=== PATIENT | female | born 1995 | race Caucasian/White ===

== ENCOUNTER 2017-07-24 05:33 | Emergency (ER) | payer SELFPAY ==
[~2017-07-24] VITALS: Ht 157.5 cm; Wt 87.9 kg
[2017-07-24 05:35] VITALS: BP 124/83
[2017-07-24] MEDS ORDERED: CEFTRIAXONE 1,000 MG ONE (05:55)
[2017-07-24] MEDS ORDERED: SULFAMETH./TRIMETHOPRIM DS 800MG/160MG TABLET ONE (05:55)
[2017-07-24] MEDS ORDERED: LIDOCAINE-MPF 1%, 2ML ONE (05:56)
[2017-07-24] MEDS ORDERED: CEFTRIAXONE 1,000 MG IM ONE (06:00)
[2017-07-24] MEDS ORDERED: SULFAMETH./TRIMETHOPRIM DS 800MG/160MG TABLET PO ONE (06:00)
== END 2017-07-24 06:41 | disposition home or self-care (01) ==
LOC: ED 06:14
DX: S90.411A Abrasion, right great toe, initial encounter (principal); L03.115 Cellulitis of right lower limb; L03.031 Cellulitis of right toe; X58.XXXA Exposure to other specified factors, initial encounter; Y93.89 Activity, other specified; Y92.89 Other specified places as the place of occurrence of the external cause; Y99.8 Other external cause status
CPT/HCPCS: 96372; 99283; J0696

== ENCOUNTER 2017-07-25 10:12 | Emergency (ER) | payer SELFPAY ==
[~2017-07-25] VITALS: Ht 157.5 cm; Wt 86.0 kg
[2017-07-25 10:17] VITALS: BP 118/78
== END 2017-07-25 10:53 | disposition home or self-care (01) ==
LOC: ED 10:47
DX: L03.116 Cellulitis of left lower limb (principal)
CPT/HCPCS: 99281